=== PATIENT | male | born 1970 | race Caucasian/White ===

== ENCOUNTER 2017-01-16 21:07 | Emergency (ER) | payer OTHER ==
[~2017-01-16] VITALS: Ht 172.7 cm; Wt 171.4 kg
--- NOTE | ~2017-01-16 | US85 ---
[facility] A Service [facility] RADIOLOGY TEXT RESULTS PATIENT: JUANITA RENTERIA LOCATION: SED : 70 UNIT #: [id number] AGE: [address]: ASHLEIGH VALADEZ SEX: M ORDER DR: [id number] [place] [id number] E MR#: [id number] Acc #: [id number] NAME: JUANITA RENTERIA : 1970 SEX: M STUDY DATE/TIME: 01/16/2017 23:44 UNIT: SED ROOM: STUDY DESCRIPTION: [facility] St[facility] Attending Physician: Ashleigh Valadez Aprn Ordering Physician: Brad Andre M.D. Primary Care Physician: Tori Gutierrez M.D. MEDICAL IMAGING REPORT This report is preliminary unless electronic signature is present. EXAM Venous Doppler ultrasound, left leg, 01/16/2017. HISTORY 46-year-old male in the ED complaining of a 5-day history of left knee and calf pain, worsening today. TECHNIQUE Venous Doppler ultrasound examination of the left leg using benoit-scale, spectral Doppler, and color-flow Doppler ultrasound imaging. The examination is limited by patient body habitus, particularly below the knees. FINDINGS The examination is negative. No evidence of DVT from the groin to the lower calf. Greater saphenous vein is patent. IMPRESSION Negative venous Doppler ultrasound examination of the left leg with technical limitations as noted above. Dictated by... Joshua Ramos M.D. THIS IS AN ELECTRONICALLY VERIFIED REPORT Joshua Ramos M.D. at 01/17/2017 9:52 PM RGW/tmw TD: 01/17/2017 08:57 JOB #: [id number] [facility] A Service [facility] RADIOLOGY TEXT RESULTS PATIENT: JUANITA RENTERIA LOCATION: SED : 70 UNIT #: [id number] AGE: [address]: ASHLEIGH VALADEZ SEX: M ORDER DR: MEDICAL IMAGING REPORT Page 1 of 1
[~2017-01-16 21:07] MED LIST: AMLODIPINE BESY10 MG PO; BACTRIM DS TABL1 TAB PO; BLOOD PRESSURE PILL; CITALOPRAM PO; CLEOCIN150 MG PO; DIABETIC PILL; FLEXERIL10 MG PO; GLIMEPIRIDE2 MG PO; GLUCOTROL PO; IBUPROFEN800 MG PO; LEVAQUIN PO; LISINOPRIL-HCTZ1 T15 PO; LOPRESSOR PO; LORTAB 7.5-5001 TAB PO; METFORMIN HCL500 M1 PO; NAPROSYN500 MG PO; POTASSIUM PO; ROBAXIN 750750 M1 PO; ROBAXIN500 MG PO; TYLOX 5/500 CAP1 CAP PO; ULTRAM PO; ZESTORETIC 10/11 TAB PO; [UNRECOGNIZED DRUG - REMARK]
[2017-01-16] MEDS ORDERED: CELEXA20 MG PO (21:18)
[2017-01-16] MEDS ORDERED: INDOMETHACIN25 MG PO (21:18)
[2017-01-16] MEDS ORDERED: AMLODIPINE BESYL5 MG PO (21:19)
[2017-01-16] MEDS ORDERED: ATORVASTATIN CA10 MG PO (21:19)
[2017-01-16] MEDS ORDERED: GLIPIZIDE10 MG PO (21:19)
[2017-01-16] MEDS ORDERED: ZESTORETIC 20-1 EAC1 PO (21:19)
[2017-01-16] MEDS ORDERED: FARXIGA5 MG PO (21:20)
[2017-01-16] MEDS ORDERED: SOLIQUA 100 UNIT3 ML SUBQ (21:21)
[2017-01-16] MEDS ORDERED: PLAQUENIL200 MG PO (21:21)
[2017-01-16] MEDS ORDERED: NOVOLIN R100 UNITS/ SUBQ (21:22)
== END 2017-01-17 01:12 | disposition home or self-care (01) ==
LOC: SED 21:07
DX: M25.562 Pain in left knee (principal); M79.662 Pain in left lower leg; E11.9 Type 2 diabetes mellitus without complications; I10 Essential (primary) hypertension; E78.5 Hyperlipidemia, unspecified; Z98.890 Other specified postprocedural states; Z88.5 Allergy status to narcotic agent
CPT/HCPCS: 29530; 93971; 99283

== ENCOUNTER → 2017-02-10 | Outpatient (CLI) | payer OTHER ==
[~2017-02-10] MED LIST changes: +AMLODIPINE BESYL5 MG PO; +ATORVASTATIN CA10 MG PO; +CELEXA20 MG PO; +FARXIGA5 MG PO; +GLIPIZIDE10 MG PO; +INDOMETHACIN25 MG PO; +NOVOLIN R100 UNITS/ SUBQ; +PLAQUENIL200 MG PO; +SOLIQUA 100 UNIT3 ML SUBQ; +ZESTORETIC 20-1 EAC1 PO
--- NOTE | ~2017-02-10 | US85 ---
[facility] A Service of [facility] RADIOLOGY TEXT RESULTS PATIENT: JUANITA RENTERIA JR LOCATION: SNIV : 70 UNIT #: [id number] AGE: [address]: Anya Tee APRN SEX: M ORDER DR: [id number] [address] [address] [id number] O MR#: [id number] Acc #: [id number] NAME: JUANITA RENTERIA : 1970 SEX: M STUDY DATE/TIME: 02/10/2017 12:42 UNIT: SNIV ROOM: STUDY DESCRIPTION: [facility] Attending Physician: Anya Tee A.P.R.N. Referring Physician: Anya Tee A.P.R.N. Ordering Physician: Anya Tee A.P.R.N. Primary Care Physician: Tori Gutierrez M.D. MEDICAL IMAGING REPORT This report is preliminary unless electronic signature is present. EXAM Unilateral left lower extremity venous Doppler HISTORY Left leg pain since December 2016. TECHNIQUE Venous ultrasound examination of the left lower extremity was performed using grayscale, spectral Doppler and color flow Doppler imaging. FINDINGS The examination is negative. There is no evidence of left lower extremity deep venous thrombus from the groin to the lower calf. Visualized greater saphenous vein is also patent. IMPRESSION Negative examination. No evidence of left lower extremity deep venous thrombosis. Dictated by... Mark Goodwin M.D. THIS IS AN ELECTRONICALLY VERIFIED REPORT Mark Goodwin M.D. at 02/11/2017 2:06 PM ETHEL/kamilah TD: 02/10/2017 22:13 JOB #: [id number] MEDICAL IMAGING REPORT Page 1 of 1
== END | disposition home or self-care (01) ==
LOC: SNIV 12:11
DX: M79.89 Other specified soft tissue disorders (principal); M79.605 Pain in left leg
CPT/HCPCS: 93971